=== PATIENT | female | born 1970 | race American Indian/Alaskan Native ===

== ENCOUNTER 2018-09-16 13:16 | Emergency (ER) | payer OTHER ==
[2018-09-16 13:21] VITALS: BP 137/94; PULSE 108; RESP 17; TEMP 98.1; O2SAT 100
--- NOTE | 2018-09-16 14:06 | C.PDOC ---
History Of Present Illness 48 yo female come in for evaluation of Right neck/shoulder pain associated with intermittent Right arm and hand tingling gradually developed for past 1 week. Pt reports, " was seen by my PMD week ago, tacking medication without significant improvement. Pt reports, " feels like my muscle over the Right side neck go to spasm". Otherwise, pt denies known direct trauma or injury, headache, dizziness, CP, SOB, dyspnea, palpitation, denies deformity, weakness to Right arm. Ambulatory, not in any apparent distress. Time Seen by Provider: 09/16/18 13:28 Chief Complaint (Nursing): Upper Extremity Problem/Injury History Per: Patient Past Medical History Reviewed: Historical Data, Nursing Documentation, Vital Signs Vital Signs: Last Vital Signs Temp 98.1 F 09/16/18 13:18 Pulse 108 H 09/16/18 13:18 Resp 17 09/16/18 13:18 BP 137/94 H 09/16/18 13:18 Pulse Ox 100 09/16/18 13:18 - Medical History PMH: Fibromyalgia Denies: Diabetes Family History: States: No Known Family Hx - Social History Hx Alcohol Use: Yes Hx Substance Use: No - Immunization History Hx Tetanus Toxoid Vaccination: No Hx Influenza Vaccination: Yes Hx Pneumococcal Vaccination: No Review Of Systems Except As Marked, All Systems Reviewed And Found Negative. Constitutional: Negative for: Fever, Chills Cardiovascular: Negative for: Chest Pain, Palpitations, Orthopnea, Edema, Light Headedness Respiratory: Negative for: Cough, Shortness of Breath, Wheezing Gastrointestinal: Negative for: Nausea, Vomiting Musculoskeletal: Positive for: Neck Pain, Shoulder Pain Neurological: Negative for: Weakness, Altered Mental Status, Headache, Dizziness Physical Exam - Physical Exam Appears: Well, Non-toxic, No Acute Distress Skin: Normal Color, Warm, Dry Eye(s): bilateral: PERRL Neck: Normal ROM, Trachea Midline, No Midline Cervical Tenderness, No Step Off Deformity, Supple, Other (Right lateral cervical tenderness over trap muscle with palpable spasm. No midline tendernes, no skin changes) Cardiovascular: Rhythm Regular Respiratory: No Decreased Breath Sounds, No Accessory Muscle Use, No Stridor, No Wheezing Back: Normal Inspection Extremity: Normal ROM (RUE), Tenderness (mod over superior Right shoulder), Capillary Refill (Right hand), No Deformity, No Swelling Neurological/Psych: Oriented x3, Normal Speech, Normal Motor, Normal Sensation, Normal Reflexes ED Course And Treatment O2 Sat by Pulse Oximetry: 100 Pulse Ox Interpretation: Normal Progress Note: On re-eval, pt is afebrile, henodynamical stable. non-toxic. PulsEOx 100% RA. head: AT/NC. neck: Supple, (-) midline tenderness, (-) carotid bruits B/L, (-) JVD. Lungs: CTA B/L, BS equal B/L. CVS: (+)S1S2, reg. Neuorlogicaly intact. Pt richards slcinical findings c/w Right sided cervical radiculopathy, Right shoulder/neck muscle spasm. Pt advised. ref. to f/u with PMD in 2-3 days for re-eval. return if any new changes Disposition Counseled Patient/Family Regarding: Diagnosis, Need For Followup, Rx Given - Disposition Referrals: Zan Gurrola MD [Medical Doctor] - Disposition: HOME/ ROUTINE Disposition Time: 14:02 Condition: STABLE Additional Instructions: LIght duty to Right arm take medication as prescribed Follow up with PMD in 2-3 days for re-evaluation. return to ED if any worsening or new changes. Prescriptions: Prednisone [Deltasone] 40 mg PO DAILY #6 tablet Instructions: Cervical Muscle Strain - Clinical Impression Clinical Impression: Cervical radiculopathy, Muscle strain
== END 2018-09-16 14:15 | disposition home or self-care (01) ==
LOC: C.ER 13:16
DX: M54.12 Radiculopathy, cervical region (principal); S16.1XXA Strain of muscle, fascia and tendon at neck level, initial encounter; X58.XXXA Exposure to other specified factors, initial encounter